=== PATIENT | male | born 1950 | race Caucasian/White ===

== ENCOUNTER → 2019-02-26 | Outpatient (CLI) | payer OTHER | END | disposition home or self-care (01) | LOC: RAH 11:08 | PROVIDERS: ATTEND Nurse Practitioner Adult Health | DX: Z13.6 Encounter for screening for cardiovascular disorders (principal) | CPT/HCPCS: 75571 ==

== ENCOUNTER → 2019-04-25 | Outpatient (CLI) | payer MEDICARE | END | disposition home or self-care (01) | LOC: SHCH 11:05 | PROVIDERS: ATTEND Internal Medicine Cardiovascular Disease | DX: I35.8 Other nonrheumatic aortic valve disorders (principal); I25.10 Atherosclerotic heart disease of native coronary artery without angina pectoris | CPT/HCPCS: 93306 ==

== ENCOUNTER 2019-05-29 05:45 | Observation (INO) | payer MEDICARE ==
[2019-05-27 12:51] LABS: BASOPHILS % (AUTO) 0.9 % (0.0-5.0); EOSINOPHILS % (AUTO) 2.4 % (0.0-8.0); LYMPHOCYTES % (AUTO) 22.1 % (21.0-51.0); MEAN CORPUSCULAR HEMOGLOBIN 31.7 pg (27.0-33.0); MEAN CORPUSCULAR VOLUME 93.3 fL (79-99); MONOCYTES % (AUTO) 10.1 % (3.0-13.0); PLATELET COUNT (AUTO) 204 K/uL (130-400); RED BLOOD CELL COUNT(AUTO) 4.61 MIL/uL (4.50-6.20); RED CELL DISTRIBUTION WIDTH 12.6 % (11.0-15.5); WHITE BLOOD COUNT (AUTO) 8.2 K/uL (4.8-10.8)
[2019-05-27 13:01] VITALS: BP 185/84
[2019-05-27 13:05] LABS: CREATININE 0.9 mg/dL (0.5-1.5); POTASSIUM 4.1 mmol/L (3.5-5.1)
[2019-05-27 13:06] LABS: INR 1.02 (0.85-1.15); PARTIAL THROMBOPLASTIN TIME 26.1 SEC (26.3-35.5); PROTHROMBIN TIME 10.7 SEC (9.6-11.6)
[2019-05-27 13:17] LABS: APPEARANCE,URINE Clear (CLEAR); BILIRUBIN,URINE Negative (NEGATIVE); COLOR,URINE Yellow (YELLOW); GLUCOSE, URINE (UA) Negative (NEGATIVE); KETONES,URINE Negative (NEGATIVE); LEUKOCYTE ESTERASE ,URINE Negative (NEGATIVE); NITRATE,URINE Negative (NEGATIVE); OCCULT BLOOD,URINE Negative (NEGATIVE); PROTEIN,URINE Negative (NEGATIVE); UROBILINOGEN,URINE 0.2 mg/dL (0.2-1.0)
[2019-05-29] VITALS (13 sets, daily range): BP systolic 136–166; BP diastolic 56–75
[~2019-05-29] VITALS: Ht 175.3 cm; Wt 117.0 kg
[~2019-05-29 05:45] MED LIST: ASPI-555 PO; CETI-109 PO; MULT-1192 PO; ROSU20TA31 PO; SILD50TA PO
[2019-05-29] MEDS ORDERED: SODIUM CHLORIDE 0.9% 1000ML 1,000 ML IV ONE (06:07)
[2019-05-29] MEDS ORDERED: IOHEXOL-350 50ML VIAL IV ONE ×3 (07:08→08:37)
[2019-05-29] MEDS ORDERED: IOHEXOL 350 MG/ML 100ML INFUS..BTL IV ONE (07:08)
[2019-05-29] MEDS ORDERED: HEPARIN SODIUM 1000UNIT/ML 10ML VIAL ONE (07:08)
[2019-05-29] MEDS ORDERED: LIDOCAINE HCL 2% 20ML ONE (07:08)
[2019-05-29] MEDS ORDERED: SODIUM BICARB 50MEQ 50ML VIAL ONE (07:08)
[2019-05-29] MEDS ORDERED: MIDAZOLAM HCL 1 MG/ML 2ML VIAL ONE ×2 (07:09→07:44)
[2019-05-29] MEDS ORDERED: MEPERIDINE-PF 25 MG/ML SYG ONE ×2 (07:09→07:44)
[2019-05-29] MEDS ORDERED: NITROGLYCERIN 2 MG/VIAL VIAL IV ONE (07:10)
[2019-05-29] MEDS ORDERED: NAPROXEN PO (07:10)
--- NOTE | 2019-05-29 07:25 | NUR ---
PROCEDURE PT TAKEN TO MACHINERY ENGINEER FOR SCHEDULED PROCEDURE
[2019-05-29] MEDS ORDERED: SODIUM CHLORIDE 0.9% 1000ML 1,000 ML IV SCH (08:00)
[2019-05-29] MEDS ORDERED: ASPIRIN 81MG TAB.CHEW ONE (09:19)
[2019-05-29] MEDS ORDERED: PRASUGREL HCL 10 MG TABLET ONE (09:20)
[2019-05-29] MEDS: SODIUM CHLORIDE 0.9% 1000ML 1,000 ML IV SCH ×2 (09:26→17:33)
--- NOTE | 2019-05-29 11:35 | NUR ---
CORRECTION LEFT FEMORAL SITE WITHOUT SIGNS AND SYMPTOMS OF HEMORRHAGE, SITE SOFT, NON-TENDER DRESSING INTACT Addendum: 05/29/19 at 1140 by MARCO SILVA RN RN Amended: Links added.
--- NOTE | 2019-05-29 12:45 | NUR ---
admission Elaina Iglesias BUSINESS SERVICES TECH WITH DR. REDDY , notified of new admission, stated she will see patient today
--- NOTE | 2019-05-29 13:22 | NUR ---
report report given to Charlee HERMAN at telemetry floor
--- NOTE | 2019-05-29 13:35 | NUR ---
transfer pt transferred to room 228 via bed,no distress noted. pt denied any pain or discomforts. patient remains bedrest , pt spouse went with patient up to 2nd floor.
--- NOTE | 2019-05-29 14:00 | NUR ---
DOPPLER PULSES CHECKED WITH DOPPLER TO BILATERAL LOWER EXTREMITIES. PULSES PALPABLE BOTH RIGHT AND LEFT DORSAL PEDAL AND POSTERIOR TIBIAL.
[2019-05-29] MEDS: ACETAMINOPHEN 325 MG TAB PO PRN (15:40)
[2019-05-29] MEDS ORDERED: DIPHENHYDRAMINE HCL 25 MG CAPSULE PO PRN (15:45)
[2019-05-29] MEDS ORDERED: IPRATROPIUM/ALBUTEROL SULFATE 3 ML SOLUTION IH PRN (15:45)
[2019-05-29] MEDS ORDERED: HYDRALAZINE HCL 20 MG/ML VIAL IV PRN (15:45)
[2019-05-29] MEDS ORDERED: NITROGLYCERIN 0.4 MG SL TAB SL PRN (15:45)
[2019-05-29] MEDS ORDERED: ACETAMINOPHEN-CODEINE 300/30MG TAB PO PRN (15:45)
[2019-05-29] MEDS ORDERED: MORPHINE SULFATE 2 MG/ML 1ML SYG IVP PRN (16:00)
[2019-05-29] MEDS ORDERED: ATORVASTATIN CALCIUM 40 MG TABLET PO SCH (21:00)
[2019-05-30] MEDS: ACETAMINOPHEN 325 MG TAB PO PRN (01:56)
[2019-05-30] MEDS: SODIUM CHLORIDE 0.9% 1000ML 1,000 ML IV SCH (01:56)
[2019-05-30 04:04] VITALS: BP 142/71
[2019-05-30 05:10] LABS: HEMATOCRIT 40.3 % (42-54); MEAN CORPUSCULAR HEMOGLOBIN 31.5 pg (27.0-33.0); MEAN CORPUSCULAR HGB CONC 33.7 g/dL (32.0-36.0); MEAN CORPUSCULAR VOLUME 93.3 fL (79-99); PLATELET COUNT (AUTO) 173 K/uL (130-400); RED BLOOD CELL COUNT(AUTO) 4.32 MIL/uL (4.50-6.20); RED CELL DISTRIBUTION WIDTH 12.9 % (11.0-15.5); WHITE BLOOD COUNT (AUTO) 9.1 K/uL (4.8-10.8)
[2019-05-30 05:17] LABS: POTASSIUM 3.7 mmol/L (3.5-5.1)
--- NOTE | 2019-05-30 07:45 | NUR ---
AM ASSESSMENT PT LAYING IN BED, HOB ELEVATED 30 DEGREES, WATCHING TV. A/O X 4. NO SOB. NO DISTRESS NOTED. DENIES CHEST PAIN OR DISCOMFORT. DENIES PALPITATIONS. DENIES INCISIONAL PAIN. TELE: SB/SR. RT GROIN SOFT, NON-TENDER. DSG DRY & INTACT. NO BLEEDING. NO HEMATOMA NOTED. (+) BILATERAL PEDAL PULSES. BLE PINK & WARM TO TOUCH. DENIES N/V AND/OR DIARRHEA. UP AD LYNDSAY. INSTRUCTED TO CALL FOR ASSISTANCE. CALL JEANIE W/IN REACH.
[2019-05-30 08:01] VITALS: BP 162/76
--- NOTE | 2019-05-30 08:48 | NUR ---
AM MEDICATIONS PT TOOK ASA & ZYRTEC FROM HIS OWN HOME SUPPLY.
[2019-05-30] MEDS ORDERED: CETIRIZINE HCL 5 MG TABLET PO SCH (09:00)
[2019-05-30] MEDS ORDERED: ASPIRIN 81 MG EC TAB PO SCH (09:00)
[2019-05-30] MEDS ORDERED: MULTIVITAMIN TABLET PO SCH (09:00)
[2019-05-30] MEDS ORDERED: PRASUGREL HCL 10 MG TABLET PO SCH (09:00)
--- NOTE | 2019-05-30 11:20 | NUR ---
DISCHARGE VERBAL & WRITTEN DISCHARGE INSTRUCTIONS REVIEWED & GIVEN TO PT & SPOUSE. QUESTIONS ENCOURAGED & CLARIFIED. PROPER CARE & ACTIVITY AFTER LHC W/STENTS REVIEWED. NEW PRESCRIBED MEDICATIONS REVIEWED. PRESCRIPTION GIVEN TO PT. SIGNED COPY OF PRESCRIPTION PLACED IN CHART. TELE AWAIS REMOVED @ THIS TIME. PT & SPOUSE TO GATHER PERSONAL BELONGINGS. WILL NOTIFY STAFF WHEN READY TO BE TAKEN TO PRIVATE VEHICLE.
--- NOTE | 2019-05-30 11:30 | NUR ---
DISCHARGE PT AMBULATED TO PRIVATE VEHICLE, ACCOMPANIED BY MYSELF-Sae CONDE RN. TOLERATED WELL. NO DISTRESS NOTED. SPOUSE AWAITING FOR PT IN PRIVATE VEHICLE.
--- NOTE | 2019-05-30 15:55 | NUR ---
[id number] Patient signed SANCHEZ Letter, faxed SANCHEZ Letter to [phone] and placed in chart under consent tab
== END 2019-05-30 11:30 | disposition home or self-care (01) ==
LOC: DAH 05:45 → DAHIP 05:46 → DAH 05:46 → 2DH 13:54
PROVIDERS: ADMIT Internal Medicine; ATTEND Internal Medicine
DX: I25.119 Atherosclerotic heart disease of native coronary artery with unspecified angina pectoris (principal); E78.00 Pure hypercholesterolemia, unspecified; E78.5 Hyperlipidemia, unspecified; I35.8 Other nonrheumatic aortic valve disorders; J30.2 Other seasonal allergic rhinitis; R79.89 Other specified abnormal findings of blood chemistry; E66.9 Obesity, unspecified; R00.1 Bradycardia, unspecified; Z87.39 Personal history of other diseases of the musculoskeletal system and connective tissue; Z82.49 Family history of ischemic heart disease and other diseases of the circulatory system; Z79.82 Long term (current) use of aspirin; Z79.899 Other long term (current) drug therapy; Z68.38 Body mass index [BMI] 38.0-38.9, adult
CPT/HCPCS: 36415 ×3; 71045; 80048 ×2; 81003; 85025; 85027; 85347 ×2; 85610; 85730; 93005; 93458; 94664; A4215; A4216; A4221; A4222; A4223 ×3; A4606; A4663; C1725 ×2; C1760 ×2; C1769 ×2; C1874 ×4; C1887 ×2; C1894; C9600 ×2; G0378 ×25; J1644 ×3; J2175 ×2; J2250 ×2; J3490 ×3; J7030 ×2; Q9965 ×2; Q9967 ×4; 99156; 99157

== ENCOUNTER → 2022-07-15 | Outpatient (CLI) | payer MEDICARE ==
[~2022-07-15] MED LIST changes: -ASPI-555 PO; +ASPI-556 PO; -CETI-109 PO; +CETI-89 PO; +NAPROXEN PO
[2022-07-15 16:00] LABS: ALBUMIN 4.3 g/dL (3.5-5.0); CREATININE 1.1 mg/dL (0.5-1.5); MAGNESIUM 2.2 mg/dL (1.80-2.40); POTASSIUM 3.8 mmol/L (3.5-5.1); TOTAL PROTEIN, SERUM 8.1 g/dL (6.0-8.3)
== END | disposition home or self-care (01) ==
LOC: LAB 11:56
PROVIDERS: ATTEND Physician Assistant
DX: I25.10 Atherosclerotic heart disease of native coronary artery without angina pectoris (principal)
CPT/HCPCS: 36415; 80053; 83735

== ENCOUNTER → 2023-05-19 | Outpatient (CLI) | payer MEDICARE ==
[~2023-05-19] MED LIST changes: -ROSU20TA31 PO; +ROSU20TA73 PO
[2023-05-19 13:12] LABS: ALBUMIN 4.1 g/dL (3.5-5.0); BILIRUBIN,TOTAL 0.6 mg/dL (0.2-1.0); CREATININE 0.9 mg/dL (0.5-1.5); POTASSIUM 4.2 mmol/L (3.5-5.1); TOTAL PROTEIN, SERUM 8.1 g/dL (6.0-8.3)
== END | disposition home or self-care (01) ==
LOC: LAB 08:25
PROVIDERS: ATTEND Internal Medicine Cardiovascular Disease
DX: I25.10 Atherosclerotic heart disease of native coronary artery without angina pectoris (principal)
CPT/HCPCS: 36415; 80053; 80061

== ENCOUNTER → 2023-06-02 | Outpatient (CLI) | payer MEDICARE | END | disposition home or self-care (01) | LOC: SHCH 14:22 | PROVIDERS: ATTEND Internal Medicine Cardiovascular Disease | DX: I11.9 Hypertensive heart disease without heart failure (principal); I25.10 Atherosclerotic heart disease of native coronary artery without angina pectoris; E11.9 Type 2 diabetes mellitus without complications; E78.5 Hyperlipidemia, unspecified | CPT/HCPCS: 93306 ==

== ENCOUNTER → 2023-07-17 | Outpatient (CLI) | payer MEDICARE ==
[2023-07-17 12:40] LABS: CHOLESTEROL 162 mg/dL (<200); HDL CHOLESTEROL 38 mg/dL (29-71); LDL DIRECT 98 mg/dL (0-99); TRIGLYCERIDES 178 mg/dL (30-200)
== END | disposition home or self-care (01) ==
LOC: LAB 08:20
PROVIDERS: ATTEND Internal Medicine Cardiovascular Disease
DX: I25.10 Atherosclerotic heart disease of native coronary artery without angina pectoris (principal)
CPT/HCPCS: 36415; 80061

== ENCOUNTER → 2023-07-28 | Outpatient (CLI) | payer MEDICARE ==
[2023-07-28] MEDS: REGADENOSON 0.4 MG/5 ML PF SYG IVP ONE (15:05)
== END | disposition home or self-care (01) ==
LOC: SHCH 07:45
PROVIDERS: ATTEND Internal Medicine Cardiovascular Disease
DX: I25.10 Atherosclerotic heart disease of native coronary artery without angina pectoris (principal); I10 Essential (primary) hypertension; R06.00 Dyspnea, unspecified
CPT/HCPCS: 78452; 96374; 93017; J2785; A9500 ×2

== ENCOUNTER → 2024-06-25 | Outpatient (CLI) | payer MEDICARE ==
[~2024-06-25] MED LIST changes: +IOHEXOL 350 MG/ML 100ML INFUS..BTL IV ONE; -ROSU20TA73 PO; +ROSU20TA98 PO
--- NOTE | 2024-06-25 22:11 | HMCIMG ---
CT CARDIAC ANGIO W/CONT. CCTA HISTORY: Shortness of breath COMPARISON: None TECHNIQUE: Multiple sequential axial images of the chest were obtained along with the CT angiogram of the chest study. Patient was given 100 cc of Omnipaque through intravenous route. FINDINGS: There is no evidence of pulmonary nodule or parenchymal disease. No pleural effusion or pericardial effusion is seen. There is no evidence of pneumothorax. There are normal size mediastinal and hilar lymph nodes. The heart is borderline enlarged. Coronary arterial calcifications are seen. Degenerative changes of the thoracolumbar spine are present. IMPRESSION: 1. No evidence of pulmonary nodule or effusion is seen. Please see CT angiogram report of coronary arteries.
--- NOTE | 2024-06-26 19:58 | CARDIOLOGY ---
RAD REPORT: [facility] CT ANGIO RADIOLOGY REPORT: CORONARY CT ANGIOGRAPHY DATE: Jun 26, 2024 QUALITY: Excellent CLINICAL HISTORY AND INDICATION: [CAD ] TECHNIQUE: After obtaining a preliminary pattern setter image, contrast imaging performed on an [employer] [id number] scanner. A dedicated, limited window, coronary imaging protocol was used, with single breath-hold, retrospective ECG gating, and automated arrhythmia rejection. 100 cc of low osmolar contrast agent: Omnipaque 350 was delivered via a 18-gauge IV catheter in the right antecubital fossa, using a power injector and followed by 60 cc of normal saline bolus as a chaser. Collimated images were reformatted at 0.5 mm intervals, and sent to an offline independent workstation for interpretation, using 3D anatomic reconstructions: Curved multiplanar reconstructions, maximum intensity projections, and multiplanar imaging. No metoprolol was administered prior to scanning due to low baseline heart rate. 0.8 mg SL nitroglycerin was given. CORONARY ARTERY DESCRIPTIONS: The coronary arteries arise in normal position. Left main coronary artery: Normal caliber vessel that bifurcates into the LAD and LCx. There is non calcified in the mid to distal left main with <20% stenosis. Left anterior descending coronary artery: Normal caliber vessel and gives rise to diagonal and septal branches. There is calcified plaque in the proximal to mid LAD with 20-30% stenosis. Left circumflex coronary artery: Normal caliber, nondominant and gives rise to a large OM branch. There are two drug eluting stents in the OM 1, however, luminal stent stenosis is poorly determined due to stent strut blooming artifact. Right coronary artery: Large, dominant vessel giving rise to the PL and PDA branches. There are two patent drug eluting stents in the proximal RCA. However, there is mixed calcified and noncalcified plaque in the distal RCA with 40-50% stenosis. Thoracic Aorta: Normal diameter. Kalyani May MD Cardiovascular Disease [facility] [address] KALYANI MAY MD Jun 26, 2024 19:58
== END | disposition home or self-care (01) ==
LOC: RAH 10:26
PROVIDERS: ATTEND Internal Medicine Cardiovascular Disease
DX: I25.10 Atherosclerotic heart disease of native coronary artery without angina pectoris (principal); R06.02 Shortness of breath; M47.815 Spondylosis without myelopathy or radiculopathy, thoracolumbar region
CPT/HCPCS: 75574; Q9967